=== PATIENT | female | born 1945 | race Caucasian/White ===

== ENCOUNTER 2017-08-09 15:02 | Outpatient (CLI) | payer MEDICARE | END 2017-08-09 15:03 | disposition home or self-care (01) | LOC: BICMAMMO 15:02 | PROVIDERS: ATTEND Family Medicine | DX: Z12.31 Encounter for screening mammogram for malignant neoplasm of breast (principal) | CPT/HCPCS: 77063; 77067 ==

== ENCOUNTER 2018-05-28 10:40 | Outpatient (CLI) | payer MEDICARE ==
--- NOTE | 2018-05-28 14:01 | ULT ---
ABDOMINAL AORTIC ULTRASOUND: HISTORY: Abdominal aortic aneurysm. TECHNIQUE: Multiple longitudinal and transverse images of the abdominal aorta are obtained using a Multi-Hertz c urvilinear transducer. Real-time, color-flow, and spectral wave-form Doppler analysis demonstrate th e abdominal aorta to have a proximal diameter of approximately 2.2 cm. In the mid abdominal aorta, t here is an area of aneurysmal dilatation, measuring approximately 2.8 x 3.3 cm. More distally, the a bdominal aorta is of normal caliber, measuring 2.3 cm in diameter. The right and left iliac arteries are of normal size, measuring between 0.9 to 1.3 cm. IMPRESSION: Small focal area of mid abdominal aortic aneurysmal dilatation, which is between the infrarenal aorta and the iliac bifurcation. POS: SANTINO
== END 2018-05-28 10:41 | disposition home or self-care (01) ==
LOC: ULT 10:40
PROVIDERS: ATTEND Family Medicine
DX: I71.4 Abdominal aortic aneurysm, without rupture (principal)
CPT/HCPCS: 76706

== ENCOUNTER 2018-08-16 12:43 | Outpatient (CLI) | payer MEDICARE ==
--- NOTE | 2018-08-16 15:07 | MMO ---
Bilateral MAMMO Bilat Screen [facility]. CLINICAL HISTORY: Patient is 73 years old and is seen for screening. The patient has no family history of breast cancer. The patient has no personal history of cancer. VIEWS: The views performed were: bilateral craniocaudal with tomosynthesis and bilateral mediolateral oblique with tomosynthesis. FILMS COMPARED: The present examination has been compared to a prior imaging study performed at [facility] on 08/09/2017. MAMMOGRAM FINDINGS: There are scattered fibroglandular densities. Finding 1: There are stable benign appearing calcifications seen in both breasts. Finding 2: There are stable benign appearing densities seen in both breasts. There are no suspicious masses, suspicious calcifications, or new areas of architectural distortion. IMPRESSION: THERE IS NO MAMMOGRAPHIC EVIDENCE OF MALIGNANCY. A ROUTINE FOLLOW-UP MAMMOGRAM IN 1 YEAR IS RECOMMENDED. THE RESULTS OF THIS EXAM WERE SENT TO THE PATIENT. ACR BI-RADS Category 2 - Benign finding MAMMOGRAPHY NOTE: 1. A negative mammogram report should not delay a biopsy if a dominant of clinically suspicious mass is present. 2. Approximately 10% to 15% of breast cancers are not detected by mammography. 3. Adenosis and dense breasts may obscure an underlying neoplasm.
== END 2018-08-16 12:44 | disposition home or self-care (01) ==
LOC: BICMAMMO 12:43
PROVIDERS: ATTEND Family Medicine
DX: Z12.31 Encounter for screening mammogram for malignant neoplasm of breast (principal)
CPT/HCPCS: 77063; 77067

== ENCOUNTER 2019-02-13 15:52 | Observation (INO) | payer MEDICARE ==
[2019-02-13 16:48] LABS: #Eosinphils 0.3 thou/uL (0.0-0.7); #Lymphocytes 2.3 thou/uL (1.20-3.40); #Monocytes 0.5 thou/uL (0.11-0.59); #Neutrophils 3.6 thou/uL (1.40-6.50); %Basophils 0.4 % (0.0-1.0); %Eosinophils 3.8 % (0.0-10.0); %Lymphocytes 34.5 % (21.0-51.0); %Monocytes 7.8 % (0.0-10.0); %Neutrophils 53.6 % (42.0-75.0); Hemoglobin 15.5 g/dL (12.0-16.0); Mean Corpuscular HGB CONC 34.4 g/dL (32.0-36.0); Mean Corpuscular Hemoglobin 33.8 pg (27.0-31.0); Mean Corpuscular Volume 98.3 fL (78.0-98.0); Platelet Count 234 thou/uL (130-400); RBC Distribution Width 11.6 % (11.5-14.5); White Blood Cell (WBC) Count 6.7 thou/uL (4.8-10.8)
[2019-02-13 17:08] LABS: ALT (SGPT) 15 U/L (8-55); AST (SGOT) 20 U/L (5-34); Alkaline Phosphatase 103 U/L (40-110); Anion Gap 13 mmol/L (10-20); BUN (Urea Nitrogen) 13 mg/dL (9.8-20.1); Bilirubin, Total 0.6 mg/dL (0.2-1.2); Calc. Creatinine Clearance 0 mL/min (70-130); Calcium 9.6 mg/dL (7.8-10.44); Carbon Dioxide 28 mmol/L (23-31); Chloride 104 mmol/L (98-107); Estimated GFR-MDRD 71; Globulin 3.5 g/dL (2.4-3.5); Glucose 90 mg/dL (83-110); Potassium 3.5 mmol/L (3.5-5.1); Protein, Total 7.5 g/dL (6.0-8.3); Sodium 141 mmol/L (136-145)
--- NOTE | 2019-02-13 18:41 | RAD ---
Exam: Chest one view HISTORY:Shortness of breath. Lower extremity edema. Comparison: 12/11/2013 FINDINGS: Cardiac silhouette:Upper normal cardiac silhouette. Aorta: Atherosclerosis Pulmonary vessels: Prominent Costophrenic angles: No pleural effusion. Stable eventration of the right hemidiaphragm. LUNGS: Chronic changes, without mass or consolidation. Pneumothorax: None Osseous abnormalities: None IMPRESSION: Cardiomegaly. Atherosclerosis. Pulmonary vascular prominence. Correlate for volume overlo ad.
[2019-02-13] MEDS ORDERED: Aspirin 325 MG TAB ONE (18:59)
[2019-02-13] MEDS ORDERED: Nitroglycerin 2% Ointment 1 INCH/1 GM Packet ONE (18:59)
[2019-02-13] MEDS ORDERED: Furosemide 40 MG/4 ML VIAL ONE (18:59)
[2019-02-13] MEDS ORDERED: Nitroglycerin 0.4 MG TAB 1 EACH ONE (18:59)
[2019-02-13 21:55] LABS: Troponin I 0.011 ng/mL (< 0.028)
[2019-02-13 23:50] VITALS: BMI 33.3
[2019-02-14 01:11] LABS: Troponin I Less than 0.010 ng/mL (< 0.028)
[2019-02-14] MEDS: Acetaminophen 325 MG TAB PO PRN ×2 (03:14→20:06)
[2019-02-14] MEDS ORDERED: Ondansetron PF 4 MG/2 ML Vial IVP PRN (08:06)
[2019-02-14] MEDS ORDERED: Diabetic Tussin 200 MG/10 ML UDCUP PO PRN (08:06)
[2019-02-14] MEDS ORDERED: Ondansetron ODT 4 MG TAB PO PRN (08:06)
[2019-02-14] MEDS ORDERED: Bisacodyl 10 MG SUPP PR PRN (08:06)
[2019-02-14] MEDS ORDERED: Zolpidem Tartrate 5 MG TAB PO PRN (08:06)
[2019-02-14] MEDS ORDERED: Senokot S 8.6-50 MG TAB PO PRN (08:06)
[2019-02-14] MEDS ORDERED: Loperamide HCl 2 MG CAP PO PRN (08:06)
[2019-02-14] MEDS ORDERED: Calcium Carbonate 500 MG ChewTAB PO PRN (08:06)
[2019-02-14] MEDS ORDERED: Sodium Chloride 0.65% Nasal 44 ML BOT EA NARE PRN (08:06)
[2019-02-14] MEDS ORDERED: hydrALAZINE 20 MG/ML VIAL SLOW IVP PRN (08:06)
[2019-02-14] MEDS ORDERED: FLU VACC TS2019-20(65YR UP)/PF 180 MCG/0.5 ML SYRINGE IM ONE (08:30)
[2019-02-14] MEDS ORDERED: Prevnar 13-Val Conj/PF 0.5 ML SYRINGE IM ONE (08:30)
[2019-02-14] MEDS: Famotidine 20 MG TAB PO SCH ×2 (09:49→20:06)
[2019-02-14] MEDS: Enoxaparin Sodium 40 MG/0.4 ML SYRINGE SC SCH (09:51)
[2019-02-14] MEDS ORDERED: Furosemide 40 MG/4 ML VIAL SLOW IVP SCH (11:15)
--- NOTE | 2019-02-14 11:46 | HP ---
PRIMARY CARE PHYSICIAN: Dr. Hector Post. REASON FOR ADMISSION: Dyspnea on exertion, bilateral lower extremity edema, intermittent chest discomfort. HISTORY OF PRESENT ILLNESS: A 73-year-old female, who has underlying history of hypertension, who came to emergency room with bilateral lower extremity edema. The patient also has dyspnea on exertion. The patient is also reporting intermittent chest discomfort yesterday. When asked in detail about chest pain, the patient's description of chest pain is predominantly nonanginal. She describes very vague on the right side. It has no relation with food, respiration, or activity. It is only spasmic pain, comes and goes in seconds. When asked about lower extremity edema, the patient reports that for last several months, the patient was not having good diet and she noticed increasing pedal edema for last four weeks. The patient also reports that she has bilateral lower extremity pain as well as knee pain, which she attributes to be due to taking statin and calcium, which she does not tolerate. The patient denies any orthopnea, or PND. The patient denies any fever or chills. The patient denies any upper or lower respiratory symptoms. In the emergency room, the patient was evaluated with routine blood test, which was unremarkable including cardiac enzyme was negative. Her BNP was slightly elevated. Chest x-ray was showing cardiomegaly and pulmonary vascular prominence. The patient was admitted for observation. REVIEW OF SYSTEMS: CONSTITUTIONAL: Negative for weight loss or gain, ability to conduct usual activities. SKIN: Negative for rash, itching. EYES: Negative for double vision, pain. ENT/MOUTH: Negative for nose bleeding, neck stiffness, pain, tenderness. CARDIOVASCULAR: Negative for palpitations, dyspnea on exertion, orthopnea. RESPIRATORY: Negative for shortness of breath, wheezing, cough, hemoptysis, fever or night sweats. GASTROINTESTINAL: Negative for poor appetite, abdominal pain, heartburn, nausea, vomiting, constipation, or diarrhea. GENITOURINARY: Negative for urgency, frequency, dysuria, nocturia. MUSCULOSKELETAL: Negative for pain, swelling. NEUROLOGIC/PSYCHIATRIC: Negative for anxiety, depression. ALLERGY/IMMUNOLOGIC: Negative for skin rash, bleeding tendency. Please see my HPI for pertinent positives and negatives. All other review of systems reviewed and negative except as mentioned in HPI. PAST MEDICAL HISTORY: Hypertension and dyslipidemia. PAST SURGICAL HISTORY: Hysterectomy. PAST PSYCHIATRIC HISTORY: Reviewed and negative. SOCIAL HISTORY: The patient lives at home with family. No history of tobacco, alcohol, or illicit drug abuse. FAMILY HISTORY: Positive for congestive heart failure to her mother. The patient's father also from heart related disease. No family history of cancer or stroke. ALLERGIES: THE PATIENT IS NOT TOLERATING STATIN THERAPY, IODINE, PENICILLIN, AND SULFA DRUGS. THE PATIENT IS ALSO NOT TOLERATING ANY CALCIUM PRODUCTS. CURRENT HOME MEDICATIONS: 1. Bisoprolol 10 mg p.o. daily. 2. Hydrochlorothiazide 6.25 mg p.o. daily. EMERGENCY ROOM COURSE: The patient is given Lasix 40 mg, aspirin 324 mg, nitroglycerin 0.4 mg, and nitro patch. PHYSICAL EXAMINATION: VITAL SIGNS: On arrival, blood pressure 197/95, pulse 57, respiratory rate 20, temperature 98.8, saturation 97% on room air. Weight 84.3 kg. GENERAL: The patient is currently alert and awake, in no obvious acute distress. HEENT: Head; normocephalic and atraumatic. Eyes; pupils are round, reactive to light. Extraocular muscle intact. ENT, oropharynx within normal limits. Moist mucous membranes. No oral lesion. No pharyngeal erythema. No exudate. NECK: Supple. No obvious JVD noted. No thyromegaly. No carotid bruit. LUNGS: Bibasilar coarse breath sounds with few rales noted. No wheezing. No rhonchi. No accessory muscles of respiration in use. CARDIAC: S1 and S2 appears regular without any murmur. No gallop. No rub. ABDOMEN: Soft. Bowel sounds present. Obesity noted. No peritoneal sign. No guarding. No rigidity. No rebound. BACK: Unremarkable. No CVA tenderness. EXTREMITIES: Upper extremities, passive movement of all joints are normal. Lower extremities; bilateral lower extremity edema noted, good distal pulsation. SKIN: No skin rash. HEMATOLOGIC: No lymphadenopathy. NEUROLOGIC: Nonfocal examination. SIGNIFICANT LABORATORY DATA: Chest x-ray; cardiomegaly, pulmonary vascular prominence. EKG; sinus bradycardia, normal sinus rhythm. CBC; WBC 6.7, hemoglobin 15.5, platelets 234. BMP; sodium 141, potassium 3.5, chloride 104, carbon dioxide 28, BUN 13, creatinine 0.79, glucose 90, calcium 9.6. LFT; AST 20, ALT 15, alkaline phosphatase 103, albumin 4.0. Troponin negative x3. BNP 192.0. ASSESSMENT AND PLAN: Impression; 1. New onset diastolic congestive heart failure with exacerbation. The patient's clinical presentation is consistent with congestive heart failure, which is predominantly new onset, given no previous history and based on presentation, suspecting from hypertensive heart disease. We will obtain echocardiography. We will continue with bisoprolol 10 mg p.o. daily and we will start Lasix 40 mg IV b.i.d. chest discomfort, noncardiac. Cardiac enzymes are negative. Most likely related with uncontrolled hypertension. We will continue the aspirin 81 mg p.o. daily, and cardiac enzymes are negative x3 and EKG is not showing any ischemic changes, we have ruled out cardiac etiology at this point. The patient will benefit from outpatient stress test if echocardiographic findings are not concerning. 2. Dyslipidemia. The patient is not tolerating statin therapy and that is why the patient is on fish oil and coenzyme Q10. 3. Hypertension, uncontrolled. We will continue with bisoprolol 10 mg p.o. daily and we will adjust blood pressure medication while in the hospital. 4. Deep venous thrombosis prophylaxis, Lovenox 40 mg subcu daily. GI prophylaxis, Pepcid 20 mg p.o. b.i.d. 5. Obesity with BMI 33. Dietary education given. Weight loss education given. Healthy lifestyle measure discussed with the patient. DISPOSITION PLAN: Based on clinical course within 24 to 48 hours. Plan of care discussed with the patient in detail. Job ID: [id number]
[2019-02-14] MEDS: Furosemide 40 MG/4 ML VIAL SLOW IVP SCH (14:03)
[2019-02-14] MEDS ORDERED: Melatonin 3 MG TAB PO PRN (22:35)
[2019-02-14] MEDS ORDERED: Melatonin 3 MG TAB PO SCH (22:45)
[2019-02-15 05:33] LABS: #Basophils 0.1 thou/uL (0.0-0.2); #Eosinphils 0.3 thou/uL (0.0-0.7); #Lymphocytes 1.8 thou/uL (1.20-3.40); #Monocytes 0.6 thou/uL (0.11-0.59); #Neutrophils 2.8 thou/uL (1.40-6.50); %Basophils 1.1 % (0.0-1.0); %Eosinophils 4.8 % (0.0-10.0); %Lymphocytes 32.7 % (21.0-51.0); %Monocytes 11.5 % (0.0-10.0); Hemoglobin 14.6 g/dL (12.0-16.0); Mean Corpuscular HGB CONC 33.8 g/dL (32.0-36.0); Mean Corpuscular Hemoglobin 33.2 pg (27.0-31.0); Mean Corpuscular Volume 98.3 fL (78.0-98.0); Mean Platelet Volume 7.3 fL (7.4-10.4); Platelet Count 197 thou/uL (130-400); RBC Distribution Width 11.7 % (11.5-14.5); Red Blood Cell (RBC) Count 4.39 mill/uL (4.20-5.40); White Blood Cell (WBC) Count 5.5 thou/uL (4.8-10.8)
[2019-02-15] MEDS: Furosemide 40 MG/4 ML VIAL SLOW IVP SCH (05:58)
[2019-02-15 06:01] LABS: Anion Gap 13 mmol/L (10-20); BUN (Urea Nitrogen) 19 mg/dL (9.8-20.1); Calc. Creatinine Clearance 94 mL/min (70-130); Calcium 9.5 mg/dL (7.8-10.44); Carbon Dioxide 30 mmol/L (23-31); Chloride 101 mmol/L (98-107); Estimated GFR-MDRD 76; Glucose 119 mg/dL (83-110); Magnesium 2.2 mg/dL (1.6-2.6); Potassium 3.7 mmol/L (3.5-5.1); Sodium 140 mmol/L (136-145)
[2019-02-15 08:25] VITALS: BP 104/55; TEMP 98.3
[2019-02-15] MEDS ORDERED: Fish Oil 1,000 MG CAP PO SCH (09:00)
[2019-02-15] MEDS: Enoxaparin Sodium 40 MG/0.4 ML SYRINGE SC SCH (09:00)
[2019-02-15] MEDS ORDERED: Ubidecarenone 50 MG CAP PO SCH (09:00)
[2019-02-15] MEDS ORDERED: Aspirin Chewable 81 MG TAB PO SCH (09:00)
[2019-02-15] MEDS ORDERED: Bisoprolol Fumarate 5 MG TAB PO SCH (09:00)
[2019-02-15] MEDS: Famotidine 20 MG TAB PO SCH (09:01)
--- NOTE | 2019-02-15 12:32 | DIS ---
DATE OF ADMISSION: 02/13/2019 DATE OF DISCHARGE: 02/15/2019 PRIMARY CARE PHYSICIAN: Hector Post MD DISCHARGE DISPOSITION: Home. PRIMARY DISCHARGE DIAGNOSIS: Acute on chronic diastolic congestive heart failure exacerbation. SECONDARY DISCHARGE DIAGNOSIS: Hypertension. PRIMARY PROCEDURE/OPERATION: None. RADIOLOGICAL INVESTIGATION: Chest x-ray showed pulmonary vascular congestion. Echocardiography showed EF 50% to 60%. SIGNIFICANT LABORATORY DATA: WBC 5.5, hemoglobin 14.6, platelet 197. Sodium 140, creatinine 0.75, magnesium 2.2. Cardiac enzyme negative x3. LFT normal. TSH 1.93. DISCHARGE MEDICATIONS: 1. Bisoprolol 10 mg daily. 2. Multivitamin one tablet daily. 3. Fish oil 2000 mg p.o. daily. 4. Coenzyme Q10 of 100 mg daily. 5. Aspirin 81 mg daily. 6. Lasix 40 mg p.o. daily. CONTRAINDICATION: None. CODE STATUS: Full code. INPATIENT KNIFE BLADE POLISHER: None. ALLERGIES: IODINE, PENICILLIN, STATIN, SULFA. DISCHARGE PLAN: Posthospital, the patient will follow up with primary care physician in 1 week. HOSPITAL COURSE: A 73-year-old female with above-mentioned medical problem, who was admitted by me. Please see my HPI for further details. The patient was having uncontrolled hypertension and lately she was experiencing increased dyspnea on exertion and edema of lower extremity. The patient was also not eating right at home for last several months. The patient had elevated BNP and her chest x-ray showed cardiomegaly and pulmonary vascular prominence. We obtained echocardiography, which showed normal EF and diastolic dysfunction. The patient has diagnosis of diastolic heart failure and that is why we provided the patient education about fluid restriction, salt restriction, and medication compliance. The patient is given above-mentioned medication on discharge. The patient is seen and examined at bedside today. Plan of care discussed with her in detail, medication reconciliation done, and new medication prescription sent to pharmacy. DISCHARGE PHYSICAL EXAMINATION: VITAL SIGNS: On discharge, the patient's vital signs, blood pressure 104/55, pulse 73, respiratory rate 18, saturation 95% on room air, temperature 97.9. GENERAL: The patient is currently alert, awake, in no acute distress. HEENT: Head; normocephalic, atraumatic. NECK: Supple. No JVD. No meningeal signs of irritation. LUNGS: Clear to auscultation without any rhonchi or rales. CARDIAC: S1 and S2. Regular without any murmur. No gallop. No rub. ABDOMEN: Soft. Bowel sounds present. Nontender. Nondistended. No organomegaly. No mass. EXTREMITIES: No edema. NEUROLOGIC: Nonfocal examination. Weight is 197 pounds on discharge. The patient is medically stable for discharge. Job ID: [id number]
== END 2019-02-15 11:05 | disposition home or self-care (01) ==
LOC: ERS 15:52 → 2SW 20:23
PROVIDERS: ADMIT Internal Medicine; ATTEND Internal Medicine
DX: I11.0 Hypertensive heart disease with heart failure (principal); I50.33 Acute on chronic diastolic (congestive) heart failure; E78.5 Hyperlipidemia, unspecified; E78.00 Pure hypercholesterolemia, unspecified; E66.9 Obesity, unspecified; Z68.32 Body mass index [BMI] 32.0-32.9, adult; Z79.899 Other long term (current) drug therapy; Z88.0 Allergy status to penicillin; Z88.2 Allergy status to sulfonamides; Z88.8 Allergy status to other drugs, medicaments and biological substances; Z91.041 Radiographic dye allergy status
CPT/HCPCS: 71045; 80048; 80053; 83735; 83880; 84443; 84484 ×3; 85025 ×2; 90662; 90670; 93005; 93306; 96372 ×2; 96374; 96376 ×2; 99285; G0008; G0009; G0378 ×3; 36415; 90471; J1650; J1940